=== PATIENT | female | born 1960 ===

== ENCOUNTER 2016-11-23 10:50 | Observation (INO) | payer OTHER ==
[2016-11-13 09:51] LABS: Basophils % (Auto) 0.5 % (0.0-1.8); Eosinophils % (Auto) 0.8 % (0.0-4.3); Hematocrit 37.2 % (30.3-42.9); Hemoglobin 12.6 gm/dl (10.1-14.3); Mean Corpuscular HGB Conc 34 % (30-34); Mean Corpuscular Hemoglobin 31 pg (28-32); Mean Corpuscular Volume 92 fl (79-97); Platelet Count 268 K/mm3 (140-440); Red Blood Count 4.05 M/mm3 (3.65-5.03); Red Cell Distribution Width 13.3 % (13.2-15.2); White Blood Count 5.4 K/mm3 (4.5-11.0)
--- NOTE | 2016-11-13 10:50 | Anesthesia Consultation ---
Anesthesia Consult and Med Hx Date of service: 11/13/16 - Airway Anesthetic Teeth Evaluation: Dentures (upper and lower) ROM Head & Neck: Adequate Mental/Hyoid Distance: Adequate Mallampati Class: Class II Intubation Access Assessment: Probably Good - Pre-Operative Health Status ASA Pre-Surgery Classification: ASA2 Proposed Anesthetic Plan: General - Central Nervous System Hx Psychiatric Problems: No - Other Systems Hx Cancer: Yes (atypical cells in pap smear)
--- NOTE | 2016-11-22 16:16 | Admit Criteria Form ---
Admission Criteria Documentation: AMBULATORY SURGERY EXCEPTION CRITERIA Ambulatory Surgery Exception Criteria ( Place 'X' for any and all applicable criteria): Surgery or procedure performed on ambulatory basis may require inpatient stay for[A] ANY ONE of the following(1)(2)(3)(4)(5)(6)(7)(8)(9): [X] I. A preoperative situation, condition, or finding that warrants inpatient stay as indicated by ANY ONE of the following: [X] a) Inpatient care needed because of severity of a disease or condition rather than the surgery (eg, severe cardiac or respiratory disease, severe infection) (15) (16 ) (17) (18) [] b) Emergent procedure (eg, angioplasty for acute ischemia)(19) [] c) Complex surgical approach or situation as indicated by ANY ONE of the following(3): [] i) Open approach needed instead of usual endoscopic, transcatheter, or other less invasive procedure [] ii) Difficult approach because of previous operation [] iii) Airway monitoring required after open neck procedures(20)(21) [] iv) Large mass requiring unusually extensive dissection [] v) Additional complicating feature requiring inpatient care (eg, drain management)(22(23): [] d) Major surgery in a pt with high anesthetic risk as indicated by ANY ONE of the following (2)(3)(5)(7)(8): [] i) ASA risk class III or higher (severe systemic disease impairing function) [D] [] ii) Advanced age (eg, older than 85 years)(14)(24) [] iii) Symptomatic heart failure(25) [] iv) Symptomatic asthma or COPD(8)(21) [] v) Morbid obesity with hemodynamic or respiratory problems(20)( 21)(26)(27) [] vi) Obstructive sleep apnea(20)(21) [] vii) Former premature infants who are younger than 60 weeks [] viii) High risk for severe postoperative abnormalities (eg, severe postoperative hypocalcemia after parathyroidectomy for severe hyperparathyroidism)(27)( 28) [] ix) Unstable angina(25) [] e) Drug-related risk requiring inpatient stay as indicated by ANY ONE of the following(5)(10)(14)(32)(33) [] i) Procedure requires discontinuing drugs or other therapy (eg , antiarrhythmic medication, antiseizure medication), which necessitates inpatient observation or treatment.(18)(31) [] ii) Major surgery and high risk drug use as indicated by ANY ONE of the following: [] 1) Active abuse of cocaine or similar drug [] 2) Monoamine oxidase inhibitor use [] 3) Other drug identified as posing risk [] f) Inadequate outpatient care situation as indicated by ANY ONE of the following(5)(10)(14)(32)(33) [] i) Patient lives remote from medical facility and procedure has urgent complication potential, and temporary nearby residence cannot be arranged [] ii) Patient will have postprocedure incapacitation and inadequate assistance at home, or alternative level of care cannot be arranged. [] iii) Patient will have long general anesthesia or procedure side effect resolution time, and competent person to stay with patient on first postoperative night at home or alternative level of care cannot be arranged. []iv) Other inadequate outpatient situation that cannot be handled by other means [] II. A perioperative event, condition, or finding that warrants inpatient stay as indicated by ANY ONE of the following (1)(2)(3): [] a) Inadequate physiologic recovery: cardiovascular, respiratory, or hemodynamic status not normal or near preoperative baseline(18) [] b) Hemodynamic instability [] c) Patient not alert with near normal or baseline mental status [] d) Temperature not normal or as expected and not appropriate for outpatient treatment of condition [] e) Ambulatory or appropriate activity level status not yet achieved post procedure [E](34)(35)(36) [] f) Operative site not appropriate (eg, unexpected or excessive drainage or bleeding) [] g) Postoperative effects not resolved or adequately managed (eg, significant pain or vomiting not appropriate for outpatient or next level of care)(10)(12) [] h) Complicating features requiring inpatient care as indicated by ANY ONE of the following(37): [] i) Severe complications of procedure (eg, bowel injury, airway compromise, vascular injury,severe hemorrhage) [] ii) Extensive (eg, dissection far beyond usual scope of procedure ) or prolonged (eg, 120 minutes beyond usual) surgery needed requiring inpatient postoperative care [] iii) Conversion to an open or complex procedure that requires inpatient care (eg, open vs laparoscopic cholecystectomy, abdominal vs vaginal hysterectomy)(38) [] iv) Comorbid condition or test result identified during or post procedure that requires inpatient care (7) [] v) Malignant hyperthermia(30) [] vi) Other complicating feature requiring inpatient care(22)(23) Inpatient stay may be needed until ALL of the following are present (1)(2)(3)(4) (5)(6)(10)(14)(33)(40): []a) Physiologic recovery: cardiovascular, respiratory, and hemodynamic status normal or near preoperative baseline []b) Hemodynamic stability []c) Patient alert, with near normal or baseline mental status []d) Temperature appropriate: patient afebrile or temperature appropriate for outpt treatment of condition []e) Activity level appropriate: ambulatory or appropriate activity level post procedure []f) Operative site appropriate as indicated by ALL of the following: []i) Site dry or with expected drainage []ii) Any blood noted is as expected for procedure. []g) Postoperative effects resolved or managed as indicated by ALL of the following: []i) Pain management appropriate for outpatient (or next level of) care(10) []ii) Minimal nausea and vomiting: if present, successfully treated with oral medication(12) []iii) Headache, dizziness, or drowsiness (if present) are mild. []h) Voiding status acceptable as indicated by ANY ONE of the following: []i) Voiding spontaneously []ii) No voiding but instructions given for follow-up in 6 to 8 hours []iii) Urinary catheter in place, and instructions given for follow-up []i) Complicating features requiring inpatient care manageable at a lower level of care(37) []j) Comorbid conditions manageable at a lower level of care(37) The original [employer] content created by [employer] has been revised. The portions of the content which have been revised are identified through the use of italic text or in bold, and [employer] has neither reviewed nor approved the modified material. All other unmodified content is copyright [employer]. Please see references footnoted in the original [employer] edition 2016
--- NOTE | 2016-11-23 09:29 | Short Stay Summary ---
Short Stay Documentation Date of service: 11/23/16 Narrative H&P: C/O: MASON 3 56-year-old is here for scheduled hysterectomy. She has MASON-3 on colposcopic biopsies obtained to 08/15/16; ECC was positive for MASON-3 and biopsy at 2 o'clock position was positive for MASON-3. Vaginal ultrasound obtained 2016 shows a 6 cm uterus with no structural abnormalities Gynhx: Menopausal 10 years No prior history of abnormal PaP Medhx: None Sughx: None Obhx: 2 Meds:None ALL:NKDA Fshx: No family history of cancer She is of [place] descent and speaks limited Czech Exam, she has postsurgical appearing cervix was very short length Uterus is 6-8 weeks and mobile A: MASON 3 P: -Patient and I had a long discussion about options for care, we reviewed the LEEP/CKC or hysterectomy. Decided on a hysterectomy. We discussed risks associated with hysterectomy including injury to surrounding organs and structures. We especially discussed risk of ureteral injury. All questions were answered and she will sign consent -We will proceed with laparoscopic-assisted vaginal hysterectomy with bilateral salpingectomy as soon as possible. - History Past Medical History: No medical history Past Surgical History: No surgical history Social history: , full code, no smoking, no alcohol abuse, no prescription drug abuse, no IV drug use - Allergies and Medications Current Medications: Allergies No Known Allergies Allergy (Unverified 11/12/16 15:05) Home Medications Medication Instructions Recorded Confirmed Last Taken Type No Known Home Medications [No 11/12/16 11/12/16 Unknown History Reported Home Medications] Active Medications Celecoxib (Celebrex) 200 mg PO PREOP NR Stop: 11/23/16 23:59 Famotidine (Pepcid) 20 mg IV PREOP NR Stop: 11/23/16 23:59 Gabapentin (Neurontin) 300 mg PO PREOP NR Stop: 11/23/16 23:59 Hydromorphone HCl (Dilaudid) 0.5 mg IV Q10MIN PRN PRN Reason: Pain , Severe (7-10) Stop: 11/23/16 23:59 Lactated Ringer's (Lactated Ringers) 1,000 mls @ 100 mls/hr IV DIRECT VINEET Midazolam HCl (Versed) 2 mg IV PREOP NR Stop: 11/23/16 23:59 Ondansetron HCl (Zofran) 4 mg IV ONCE PRN PRN Reason: Nausea And Vomiting Stop: 11/23/16 23:59 - Physical exam General appearance: no acute distress, well-nourished HEENT: Atraumatic Lungs: Clear to auscultation, Normal air movement Breasts: deferred Heart: Regular rate, Normal S1, Normal S2 Gastrointestinal: normal, normoactive bowel sounds, no tenderness, no distended , no masses, no guarding Female Genitourinary: normal, other (see HPI) Extremities: no ischemia Neurological: Normal speech, Strength at 5/5 X4 ext - Brief post op/procedure progress note Date of procedure: 11/23/16 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 Post-op diagnosis: same Procedure: Laparoscopic-assisted vaginal hysterectomy with bilateral salpingectomy Anesthesia: GETA Findings: Normal uterus tubes and ovaries bilaterally Surgeon: GREGORIO PRINGLE Continuous Towel Roller: TERESSA BARRETO Estimated blood loss: other (150 mL) Pathology: list (uterus cervix and tubes) - Hospital course Hospital course: Uncomplicated hospital course - Disposition Condition at discharge: Good Disposition: DISCHARGED TO HOME OR SELFCARE - Discharge Diagnoses (1) Status post bilateral salpingectomy Status: Acute (2) Status post laparoscopic assisted vaginal hysterectomy (LAVH) Status: Acute Short Stay Discharge Plan Activity: advance as tolerated, no driving until cleared by PCP, other (Pelvic rest 8 weeks (No SEX)) Weight Bearing Status: Weight Bear as Tolerated Diet: regular Wound: open to air Follow up with: FABRIZIO SAEED MD [Primary Care Provider] - 7 Days GREGORIO PRINGLE MD [Staff Physician] - 7 Days Prescriptions: HYDROcodone/APAP 5-325 [[place] 5/325] 1 each PO Q6HR PRN #30 tablet PRN Reason: Pain Ibuprofen [Motrin 600 MG tab] 600 mg PO Q8H PRN #30 tablet PRN Reason: Pain Multivitamin with Iron [Multivitamins with Iron] 1 each PO DAILY #30 tablet
[~2016-11-23 10:50] MED LIST: ANCEF/STERILE WATER 2 GM/20 ML 2 GM/20 ML SYRINGE IV SCH; DILAUDID IV PRN; NEURONTIN PO NR; PEPCID IV NR; SUBLIMAZE IV ONE; VERSED IV NR; ZOFRAN IV PRN
[2016-11-23] MEDS: LACTATED RINGERS 1,000 ML IV SCH ×2 (11:45→16:53)
--- NOTE | 2016-11-23 12:26 | Anesthesia Day of Surgery ---
Anesthesia Day of Surgery - Day of Surgery Patient Examined: Yes Patient H&P Reviewed: Yes Patient is NPO: Yes
[2016-11-23] MEDS ORDERED: ZEMURON IV ONE ×2 (12:32→13:55)
[2016-11-23] MEDS ORDERED: DIPRIVAN 10 MG/ML IV ONE (12:32)
[2016-11-23] MEDS ORDERED: XYLOCAINE MPF 2% ONE (12:32)
[2016-11-23] MEDS ORDERED: DILAUDID ONE (12:32)
[2016-11-23] MEDS ORDERED: MARCAINE 0.25% INFILTRATI ONE ×2 (12:49→13:37)
[2016-11-23] MEDS ORDERED: ePHEDrine SULFATE ONE (13:30)
[2016-11-23] MEDS ORDERED: NACL 0.9% IR ONE (13:36)
[2016-11-23] MEDS ORDERED: LACTATED RINGERS 1,000 ML ONE (14:11)
[2016-11-23] MEDS ORDERED: ZOFRAN ONE (14:53)
[2016-11-23] MEDS ORDERED: NEOSTIGMINE ONE (14:54)
[2016-11-23] MEDS ORDERED: ROBINUL ONE ×2 (14:54)
--- NOTE | 2016-11-23 15:46 | Operative Report ---
Operative Report Operative Report: DATE: 11/23/2016 PREOPERATIVE DIAGNOSIS: MASON-3 POSTOP DIAGNOSIS: As above NAME OF PROCEDURE: Laparoscopic assisted vaginal hysterectomy with bilateral salpingectomy SURGEON: GREGORIO PRINGLE MD [employer] CASE MANAGER: ESTEVAN MANCINI ANESTHESIA: Gen. EBL: 1 50 mL PATHOLOGY SPECIMEN: Uterine cervix and bilateral tubes URINE OUTPUT: 200 mL FINDINGS: Very narrow introitus, cervix appears firm and irregular and shortened length, Normal-appearing uterus and tubes, DESCRIPTION OF PROCEDURE: After informed consent, patient was taken to the operating room where she was prepped and draped in a sterile fashion. She was placed in dorsolithotomy position then a boyce catheter was placed without difficulty. Pereira speculum speculum was placed in the patient's vagina and single-tooth was used to grab the anterior lip. A Vcare uterine manipulator was advanced into the patient's cervical os without difficulty and the balloon was inflated. Attention was then turned to the patient's abdomen where 1/4 percent Marcaine was injected then a 1-1/2 cm incision was made in the umbilical fold; using S retractors, the subcutaneous tissue was dissected down to exposed the fascia. Fascia was grasped with Socorro forceps, elevated and an incision was made in the midline using Metzenbaum scissors. Fascial incision was extended with use of Carmen forceps and then S retractors were placed in the incisional hole. Peritoneal layer was seen and grasped with Allises 2; this was elevated and incision was made in the midline using Metzenbaum scissors. S retractors were placed in the incisional hole in the peritoneum and then a Grissom trocar was advanced into the patient's abdomen without difficulty. CO2 gas was used to obtain intra-abdominal insufflation. uterus was noted immediately; normal ovaries and tubes bilaterally. Attention was then turned to the patient's left and right lower quadrants where under direct visualization 10 mm trocars were advanced into the patient's abdomen without difficulty. Using 10 mm LigaSure, the round ligaments and the utero-ovarian ligaments on both sides were grasped and cauterized and transected. Uterine arteries on both sides were grasped with LigaSure then cauterized and transected. After a period of observation confirming hemostasis attention was then turned to the patient's vagina. The Boyce catheter and a Vcare uterine manipulator were removed, and weighted speculum was placed in the patient's vagina. A single tenaculum was then used to grab the cervix. Using a scalpel a circumferential incision was made around the cervix; the vaginal cuff was then pushed cephalad away from the cervix. Attention was then turned to the patient's posterior fornix; using smooth pickups, the peritoneal layer covering the posterior fornix was grasped, elevated and an incision made using Metzenbaums. Entry into the peritoneal cavity was confirmed then the long weighted speculum was placed into into the peritoneal opening. We then proceeded to serially grab the uterosacrals on both sides using Carolyn forceps; these were clamped cut and suture ligated using 0 Vicryl. We Serially grabbed the cardinal ligament complex on both sides with Carolyn clamps and proceeded to clamp cut and suture ligate these. We made sure the bladder was bladder flap was pushed away from our surgical site. The broad and the utero-ovarian ligaments had been previously transected from above. The uterus was then delivered from the vagina and removed from the surgical field. We then grabbed the vaginal cuff with Allis forceps and elevated this; using 0 Vicryl on a runner angle stitch was placed on the vaginal cuff and then the posterior cuff was closed in a running locked fashion. The anterior cuff was then closed using 0 Vicryl. This process disclosed entire vaginal cuff. We then turned our attention back to the patient's abdomen with insufflation was again obtained using CO2 gas. 10 mm laparoscope was advanced into the patient's abdomen without difficulty. Inspection of the vaginal cuff showed a peritoneal window was then repaired using intracorporeal suturing, hemostasis was then observed. Copious amounts of suction irrigation were used showing no active bleeding. This was despite reducing the intra-abdominal pressure slightly. Tissel hemostatic agent was then placed over the vaginal cuff as a means to prevent future bleeding. All instruments were then withdrawn from the patient's abdomen under direct visualization. All fascial openings were closed using 0 Vicryl with a single [id number] stitch and then the skin was closed in a subcuticular manner with 4-0 Monocryl. Instrument counts were correct 2; she tolerated the procedure well she did receive 2 g of Ancef prior to the procedure and was transferred the PACU in stable condition thank you
[2016-11-23] MEDS ORDERED: NARCAN 0.4 MG/1 ML IV PRN (15:47)
[2016-11-23] MEDS ORDERED: TYLENOL PO PRN (15:47)
[2016-11-23] MEDS ORDERED: BENADRYL IV PRN (15:47)
[2016-11-23] MEDS ORDERED: TRANSDERM-SCOP TD ONE (15:49)
[2016-11-23] MEDS ORDERED: MORPHINE PCA 30MG/30ML IV SCH (16:00)
[2016-11-23] MEDS ORDERED: NACL 0.9% 1000 ML 1,000 ML IV SCH (16:00)
[2016-11-23 17:03] LABS: Anion Gap 18 mmol/L; BUN/Creatinine Ratio 21.42; Blood Urea Nitrogen 15 mg/dL (7-17); Calcium 8.5 mg/dL (8.4-10.2); Carbon Dioxide 22 mmol/L (22-30); Chloride 101.7 mmol/L (98-107); Glucose 133 mg/dL (65-100); Potassium 3.8 mmol/L (3.6-5.0); Sodium 138 mmol/L (137-145)
--- NOTE | 2016-11-23 17:46 | Post Anesthesia Evaluation ---
- Post Anesthesia Evaluation Patient Participated: Yes Airway Patent: Yes Stable Respiratory Function: Yes Temp > 96.8F: Yes Pain Manageable: Yes Adequeate Hydration: Yes Anesthesia Complications: No Block Receding Appropriately: Not Applicable
[2016-11-23] MEDS: TORADOL IV SCH (19:55)
[2016-11-23] MEDS: D5LR 1,000 ML IV SCH (23:24)
[2016-11-23] MEDS: SENOKOT S PO SCH (23:25)
[2016-11-23] MEDS: COLACE PO SCH (23:25)
[2016-11-24] MEDS: TORADOL IV SCH ×4 (01:55→22:00)
[2016-11-24] MEDS: D5LR 1,000 ML IV SCH (06:31)
[2016-11-24 07:22] LABS: Hematocrit 34.3 % (30.3-42.9); Hemoglobin 11.4 gm/dl (10.1-14.3)
--- NOTE | 2016-11-24 09:29 | Progress Note ---
Assessment and Plan POD # 1 s/p LAVH -Stable doing well P: -Discontinue IV and encourage ambulation -Continue routine postop care -Reassess her in the p.m. for possible discharge - Patient Problems (1) Status post laparoscopic assisted vaginal hysterectomy (LAVH) Current Visit: Yes Status: Acute (2) Status post bilateral salpingectomy Current Visit: Yes Status: Acute Subjective - Subjective Date of service: 11/24/16 Principal diagnosis: POD # 1 s/p LAVH Interval history: Seen and examined, stable overnight and doing well. She has some christine- incisional pain otherwise no new complaints or issues. Denies nausea vomiting, no shortness of breath or chest pain, no bleeding. Vaginal pack removed without incident Patient reports: appetite normal, voiding normally, pain poorly controlled (Christine - incisional pain, no flank tenderness or pain), ambulating normally, no dizzy ambulation, no nauseated Objective - Vital Signs Latest vital signs: Vital Signs Temp Pulse Pulse Resp BP BP Pulse Ox 11/24/16 06:00 18 11/24/16 04:00 98.6 F 74 16 111/66 100 11/24/16 01:58 18 11/24/16 01:55 18 11/24/16 00:00 98.6 F 75 16 101/60 100 11/23/16 22:00 16 11/23/16 19:55 16 11/23/16 19:15 98 F 70 16 123/76 100 11/23/16 18:05 98.2 F 80 16 124/71 11/23/16 18:00 98.2 F 80 16 124/71 11/23/16 17:45 97.3 F L 74 15 123/74 100 11/23/16 17:30 97.2 F L 72 16 125/73 100 11/23/16 17:15 97.1 F L 72 15 129/70 100 11/23/16 17:00 96.9 F L 74 15 124/74 100 11/23/16 16:45 70 16 134/77 100 11/23/16 16:30 71 14 119/76 100 11/23/16 16:15 73 14 120/77 100 11/23/16 16:10 70 14 121/73 100 11/23/16 16:05 78 12 115/72 100 11/23/16 15:59 97.3 F L 81 14 117/72 98 11/23/16 12:13 99 F 75 14 130/94 100 11/23/16 11:10 99 F 75 14 130/94 100 Intake and Output 11/23/16 11/24/16 11/24/16 22:59 06:59 14:59 Intake Total 1790 1400 Output Total 150 2200 100 Balance 1640 -800 -100 Intake: IV 1550 1000 D5lr 1,000 ml @ 125 mls/ 1000 hr IV DIRECT VINEET Rx#: [id number] Lactated Ringers 1,000 ml 1000 @ 100 mls/hr IV DIRECT VINEET Rx#:[id number] Oral 240 Intake, Free Water 400 Output: Urine 150 2200 100 Indwelling Catheter 1600 Void 50 600 100 Other: Total, Intake Amount 240 Total, Output Amount 50 800 100 Voiding Method Indwelling Catheter Toilet - Exam Abdomen: Present: normal appearance, soft, tenderness (incisional tenderness), normal bowel sounds. Absent: distention, guarding, rigidity Extremities: Present: normal Incision: Present: dressed - Labs Labs: Abnormal lab results 11/23/16 11/24/16 Range/Units 16:25 06:46 Creatinine 0.6 L (0.7-1.2) mg/dL Glucose 133 H (65-100) mg/dL
[2016-11-24] MEDS ORDERED: MILK OF MAGNESIA PO PRN (10:00)
[2016-11-24] MEDS: COLACE PO SCH ×2 (10:44→22:15)
[2016-11-24] MEDS: NORCO 5/325 PO PRN ×2 (11:27→17:30)
[2016-11-24] MEDS ORDERED: ZOFRAN IV PRN (17:24)
[2016-11-24] MEDS: SENOKOT S PO SCH (22:15)
[2016-11-25] MEDS: NORCO 5/325 PO PRN ×2 (00:08→08:24)
[2016-11-25] MEDS: TORADOL IV SCH ×3 (04:16→04:25)
--- NOTE | 2016-11-25 09:39 | Progress Note ---
Assessment and Plan POD # 2 s/p LAVH -Stable doing well P: -Discharge home -Follow up in clinic in 1-2 weeks - Patient Problems (1) Status post bilateral salpingectomy Current Visit: Yes Status: Acute (2) Status post laparoscopic assisted vaginal hysterectomy (LAVH) Current Visit: Yes Status: Acute Subjective - Subjective Date of service: 11/25/16 Principal diagnosis: POD # 2 s/p LAVH Interval history: Seen and examined, stable overnight and doing well. Pain much better controlled today. Denies nausea vomiting this AM, no shortness of breath or chest pain, no bleeding. Ambulating without difficulty with adequate bowel bladder function Patient reports: appetite normal, voiding normally, pain well controlled, flatus , ambulating normally, no dizzy ambulation, no nauseated Objective - Vital Signs Latest vital signs: Vital Signs Temp Pulse Resp BP 11/25/16 08:57 98.6 F 90 18 105/66 11/25/16 08:24 20 11/25/16 04:25 18 11/25/16 04:00 98.6 F 77 16 116/74 11/25/16 00:08 18 11/25/16 00:00 98.6 F 74 16 113/65 11/24/16 20:54 18 11/24/16 20:24 18 11/24/16 20:00 98.6 F 76 16 107/67 11/24/16 17:30 20 11/24/16 16:35 98.7 F 91 H 20 132/81 11/24/16 13:15 98.4 F 85 18 112/70 11/24/16 11:27 20 11/24/16 11:15 20 Intake and Output 11/24/16 11/25/16 11/25/16 22:59 06:59 14:59 Intake Total 320 900 Balance 320 900 Intake: Oral 320 100 Intake, Free Water 800 Other: Total, Intake Amount 200 100 Voiding Method Toilet Toilet # Voids Indwelling Catheter 1 Void 1 1 - Exam Abdomen: Present: normal appearance, soft. Absent: distention, tenderness, guarding Extremities: Present: normal Incision: Present: dry, intact
[2016-11-25 14:44] VITALS: BP 127/81
== END 2016-11-25 12:15 | disposition home or self-care (01) ==
LOC: OR 10:50 → OB 15:47
PROVIDERS: ADMIT Obstetrics & Gynecology Gynecology; ATTEND Obstetrics & Gynecology Gynecology
DX: N87.9 Dysplasia of cervix uteri, unspecified (principal); Z90.710 Acquired absence of both cervix and uterus
CPT/HCPCS: 36415; 58571; 80048; 82565; 85014; 85018; 85025; 86850; 86900; 86901; 88307; 96374; 96375; 96376; C9250; G0378; J0690; J1170; J1885; J2250; J2270; J2405; J2704; J2710; J7120; J7121